=== PATIENT | male | born 1925 | race Caucasian/White ===

== ENCOUNTER 2016-11-02 12:30 | Emergency (ER) | payer MEDICARE, OTHER ==
[2016-11-02] MEDS ORDERED: Aspirin 81 MG Tab.Chew PO ONE ×2 (12:45)
[2016-11-02] MEDS ORDERED: Sodium Chloride 0.9% 10 ML Syringe FLUSH PRN (12:45)
[2016-11-02] MEDS ORDERED: Nitroglycerin 0.4 MG Tab.SL SL ONE (12:46)
--- NOTE | 2016-11-02 13:04 | EDM.PDOC ---
ED HPI GENERAL MEDICAL PROBLEM - General Chief Complaint: Chest Pain Stated Complaint: CHEST PAINS Time Seen by Provider: 11/02/16 12:43 Source of Information: Reports: Patient History Limitations: Reports: No Limitations, Other (medical history is suspect. very forgetful, best resource is his med list) - History of Present Illness INITIAL COMMENTS - FREE TEXT/NARRATIVE: Patient presents with chest pain. He is unable to quantify whether it is stabbing, sharp, pressure. On the left side with some radiation to the left arm. No nausea or vomiting, no diaphoresis, no increased pain on palpation. Fell about 1 week ago at home. is also somewhat unsure of his medical history. In looking at his medications, he likely has history of HTN, high cholesterol, hypothyroidism, BPH, COPD, heart failure, GERD. states history of CVA, CABG. They are unable to state the years these happened. Never a smoker, no drinking or drugs. Onset: Today Duration: Intermittent Location: Reports: Chest Quality: Reports: Other (unable to define) Severity: Moderate Associated Symptoms: Reports: Chest Pain, Shortness of Breath Left Chest Pain Score (Numeric/FACES): 5 - Related Data Allergies Allergy/AdvReac Type Severity Reaction Status Date / Time cisapride [From Propulsid] Allergy Cannot Verified 11/02/16 12:59 Remember pineapple Allergy Cannot Verified 11/02/16 12:59 Remember rofecoxib [From Vioxx] Allergy Cannot Verified 11/02/16 12:59 Remember Home Meds: Home Meds Albuterol Sulfate [Proventil Hfa] 2 puff IH Q4H PRN 11/02/16 [History] Aspirin 81 mg PO BRK 11/02/16 [History] Clobetasol [Clobetasol Propionate 0.05%] 1 dose TOP BID 11/02/16 [History] Finasteride [Proscar] 5 mg PO DAILY 11/02/16 [History] Fluticasone/Salmeterol [Advair 250-50 Diskus] 1 puff IH BID 11/02/16 [History] Furosemide [Furosemide] 0.5 tab PO DAILY 11/02/16 [History] Levothyroxine [Synthroid] 50 mcg PO ACBREAKFAST 11/02/16 [History] Lisinopril 2.5 mg PO DAILY 11/02/16 [History] Nitroglycerin 0.4 mg SL ASDIRECTED PRN 11/02/16 [History] Omeprazole Magnesium [Prilosec Otc] 20 mg PO DAILY 11/02/16 [History] Tamsulosin [Flomax] 0.4 mg PO PCBREAKFAST 11/02/16 [History] Warfarin [Coumadin] 2.5 mg PO ASDIRECTED 11/02/16 [History] atorvaSTATin [Lipitor] 20 mg PO BEDTIME 11/02/16 [History] guaiFENesin [Mucinex] 600 mg PO BID PRN 11/02/16 [History] Past Medical History Cardiovascular History: Reports: Bypass, CAD, High Cholesterol, Hypertension Respiratory History: Reports: COPD Neurological History: Reports: CVA Endocrine/Metabolic History: Reports: Hypothyroidism - Past Surgical History Cardiovascular Surgical History: Reports: Coronary Artery Bypass Social & Family History - Tobacco Use Smoking Status *Q: Former Smoker Used Tobacco, but Quit: No ED ROS GENERAL - Review of Systems Review Of Systems: See Below Constitutional: Reports: No Symptoms HEENT: Reports: No Symptoms Respiratory: Reports: Shortness of Breath (states not any worse than he usually is) Cardiovascular: Reports: Chest Pain Endocrine: Reports: No Symptoms GI/Abdominal: Reports: No Symptoms : Reports: No Symptoms Musculoskeletal: Reports: Arm Pain (left) Skin: Reports: No Symptoms Neurological: Reports: No Symptoms Psychiatric: Reports: No Symptoms Hematologic/Lymphatic: Reports: No Symptoms Immunologic: Reports: No Symptoms ED EXAM, GENERAL - Physical Exam Exam: See Below Exam Limited By: No Limitations General Appearance: Alert, WD/WN, No Apparent Distress Eye Exam: Bilateral Eye: EOMI Ears: Other (unable to visualize either TM due to cerumen impaction) Throat/Mouth: Normal Inspection, Normal Oropharynx Head: Atraumatic, Normocephalic Neck: Normal Inspection, Supple, Non-Tender, Full Range of Motion Respiratory/Chest: No Respiratory Distress, Lungs Clear, Normal Breath Sounds, No Accessory Muscle Use, Chest Non-Tender Cardiovascular: Normal Peripheral Pulses, Regular Rate, Rhythm, No Edema, No Murmur Peripheral Pulses: 2+: Posterior Tibial (L), Posterior Tibial (R), Dorsalis Pedis (L), Dorsalis Pedis (R) GI/Abdominal: Normal Bowel Sounds, Soft, Non-Tender, No Organomegaly, No Distention Extremities: Normal Inspection, Normal Range of Motion, Non-Tender, No Pedal Edema, Normal Capillary Refill Neurological: Alert, Oriented, CN II-XII Intact, Normal Cognition, Normal Gait, Normal Reflexes, No Motor/Sensory Deficits Psychiatric: Normal Affect, Normal Mood Skin Exam: Warm, Dry, Intact, Normal Color Lymphatic: No Adenopathy Course - Vital Signs Last Recorded V/S: Last Vital Signs Temp 35.6 C 11/02/16 12:30 Pulse 80 11/02/16 12:52 Resp 16 11/02/16 12:52 BP 127/56 L 11/02/16 12:52 Pulse Ox 97 11/02/16 12:52 - Orders/Labs/Meds Orders: Active Orders 24 hr Category Date Time Status EKG Documentation Completion [RC] ROUTINE Care 11/02/16 12:45 Ordered Chest 1V Frontal [CR] Stat Exams 11/02/16 12:45 Ordered B-TYPE NATRIURETIC PEPTIDE,BNP [CHEM] Stat Lab 11/02/16 12:45 Ordered C-REACTIVE PROTEIN [CHEM] Stat Lab 11/02/16 12:45 Ordered CBC WITH AUTO DIFF [HEME] Stat Lab 11/02/16 12:45 Ordered CK W CKMB [CHEM] Stat Lab 11/02/16 12:45 Ordered COMPREHENSIVE METABOLIC PN,CMP [CHEM] Stat Lab 11/02/16 12:45 Ordered INR,PT,PROTHROMBIN TIME [COAG] Stat Lab 11/02/16 12:45 Ordered TROPONIN I [CHEM] Stat Lab 11/02/16 12:45 Ordered TSH ULTRASENSITIVE [CHEM] Stat Lab 11/02/16 12:45 Ordered UA W/O MICROSCOPIC [URIN] Stat Lab 11/02/16 12:45 Uncollected Sodium Chloride 0.9% [Saline Flush] Med 11/02/16 12:45 Ordered 10 ml FLUSH ASDIRECTED PRN Saline Lock Insert [OM.PC] Routine Oth 11/02/16 12:45 Ordered Medication Orders Sodium Chloride (Saline Flush) 10 ml FLUSH ASDIRECTED PRN PRN Reason: Keep Vein Open Meds: Medications Generic Name Dose Route Start Last Admin Trade Name Freq PRN Reason Stop Dose Admin Sodium Chloride 10 ml 11/02/16 12:45 Saline Flush FLUSH ASDIRECTED PRN Keep Vein Open Discontinued Medications Generic Name Dose Route Start Last Admin Trade Name Freq PRN Reason Stop Dose Admin Aspirin 324 mg 11/02/16 12:45 11/02/16 12:45 Aspirin PO 11/02/16 12:46 324 mg ONETIME ONE Administration Aspirin 324 mg 11/02/16 12:45 Aspirin PO 11/02/16 12:46 ONETIME ONE Nitroglycerin 0.4 mg 11/02/16 12:46 11/02/16 12:49 Nitrostat SL 11/02/16 12:47 0.4 mg ONETIME ONE Administration - Re-Assessments/Exams Free Text/Narrative Re-Assessment/Exam: 11/02/16 13:06 Cardiac work up in process. EKG does not appear to have STEMI involvement. Labs, x-ray initiated. 11/02/16 14:52 X-ray and lab diagnostics reviewed. Negative for acute coronary syndrome Departure - Departure Time of Disposition: 14:56 Disposition: Home, Self-Care 01 Condition: Good Clinical Impression: Atypical chest pain Instructions: Nonspecific Chest Pain, [id number] Forms: ED Department Discharge Additional Instructions: Please return for a cardiac enzyme recheck between 4:30 and 6 pm today. All of your tests were negative for heart damage. Follow up with your primary provider as needed. Call us with any questions or concerns. - Problem List & Annotations (1) Atypical chest pain SNOMED Code(s): 941254534 Code(s): R07.89 - OTHER CHEST PAIN Status: Acute Priority: Low Current Visit: Yes - Problem List Review Problem List Initiated/Reviewed/Updated: Yes - My Orders Last 24 Hours: My Active Orders 11/02/16 12:45 EKG Documentation Completion [RC] ROUTINE Chest 1V Frontal [CR] Stat B-TYPE NATRIURETIC PEPTIDE,BNP [CHEM] Stat C-REACTIVE PROTEIN [CHEM] Stat CBC WITH AUTO DIFF [HEME] Stat CK W CKMB [CHEM] Stat COMPREHENSIVE METABOLIC PN,CMP [CHEM] Stat INR,PT,PROTHROMBIN TIME [COAG] Stat TROPONIN I [CHEM] Stat TSH ULTRASENSITIVE [CHEM] Stat UA W/O MICROSCOPIC [URIN] Stat Sodium Chloride 0.9% [Saline Flush] 10 ml FLUSH ASDIRECTED PRN Saline Lock Insert [OM.PC] Routine - Assessment/Plan Last 24 Hours: My Active Orders 11/02/16 12:45 EKG Documentation Completion [RC] ROUTINE Chest 1V Frontal [CR] Stat B-TYPE NATRIURETIC PEPTIDE,BNP [CHEM] Stat C-REACTIVE PROTEIN [CHEM] Stat CBC WITH AUTO DIFF [HEME] Stat CK W CKMB [CHEM] Stat COMPREHENSIVE METABOLIC PN,CMP [CHEM] Stat INR,PT,PROTHROMBIN TIME [COAG] Stat TROPONIN I [CHEM] Stat TSH ULTRASENSITIVE [CHEM] Stat UA W/O MICROSCOPIC [URIN] Stat Sodium Chloride 0.9% [Saline Flush] 10 ml FLUSH ASDIRECTED PRN Saline Lock Insert [OM.PC] Routine Assessment:: atypical chest pain Plan: Please return for a cardiac enzyme recheck between 4:30 and 6 pm today. All of your tests were negative for heart damage. Follow up with your primary provider as needed. Call us with any questions or concerns.
[2016-11-02 13:42] LABS: CHLORIDE,CL 105 mmol/L (98-107); SODIUM,NA 140 mmol/L (136-145)
[2016-11-02 15:34] VITALS: BP 127/57
== END 2016-11-02 15:05 | disposition home or self-care (01) ==
LOC: VM.ED 12:30
DX: R07.89 Other chest pain (principal); I25.10 Atherosclerotic heart disease of native coronary artery without angina pectoris; E78.00 Pure hypercholesterolemia, unspecified; I10 Essential (primary) hypertension; R07.9 Chest pain, unspecified; J44.9 Chronic obstructive pulmonary disease, unspecified; E03.9 Hypothyroidism, unspecified; Z86.73 Personal history of transient ischemic attack (TIA), and cerebral infarction without residual deficits; Z91.018 Allergy to other foods; Z88.8 Allergy status to other drugs, medicaments and biological substances; Z79.82 Long term (current) use of aspirin; Z79.01 Long term (current) use of anticoagulants; Z79.899 Other long term (current) drug therapy; Z87.891 Personal history of nicotine dependence; Z95.1 Presence of aortocoronary bypass graft
CPT/HCPCS: 36415; 71010; 80053; 82550; 83880; 84443; 84484; 85025; 85610; 86140; 93005; 99284; 99285; A9270